=== PATIENT | female | born 1975 | race Caucasian/White ===

== ENCOUNTER 2020-09-26 16:06 | Observation (INO) ==
[2020-09-26 18:29] LABS: Bilirubin,Urine Negative (Negative); Blood,Urine Negative (Negative); Clarity,Urine Clear (Clear); Color,Urine Light-Yellow (Yellow); Glucose,Urine (UA) Normal (Normal); Ketones,Urine Negative (Negative); Leukocyte Esterase,Urine Negative (Negative); Nitrite,Urine Negative (Negative); Protein,Urine Negative (Neg-Trace); Specific Gravity,Urine 1.026 (1.010-1.025); Urobilinogen,Urine Normal (Normal)
[2020-09-26] MEDS ORDERED: Metoclopramide 10 MG/2 ML VIAL IVP ONE (18:51)
[2020-09-26] MEDS ORDERED: Morphine Sulfate 2 MG/ML SYRINGE IVP ONE ×3 (18:51→22:30)
[2020-09-26] MEDS ORDERED: Isovue-370 500 ML BOTTLE IVP ONE (19:04)
[2020-09-26] MEDS ORDERED: Isovue-370 500 ML BOTTLE PO ONE (19:27)
[2020-09-26 19:49] LABS: Basophils # 0.1 K/mcL (0.0-0.2); Basophils % 0.7 %; Eosinophils # 0.2 K/mcL (0.0-0.6); Eosinophils % 1.7 %; Hematocrit 41.2 % (35.3-44.9); Hemoglobin 12.9 g/dL (11.5-15.4); Immature Granulocytes % 0.3 % (0-4); Lymphocytes # 3.1 K/mcL (0.6-4.6); Lymphocytes % 30.9 %; Mean Corpuscular HGB Conc 31.3 g/dL (31.6-35.5); Mean Corpuscular Hemoglobin 27.5 pg (28.0-33.3); Mean Corpuscular Volume 87.8 fL (83.0-100.0); Mean Platelet Volume 9.7 fL (9.4-12.4); Monocytes # 0.7 K/mcL (0.0-1.3); Monocytes % 6.5 %; Platelet Count 308 K/mcL (140-400); Red Blood Count 4.69 M/mcL (3.82-4.97); Red Cell Distribution Width 13.2 % (11.5-14.5); Segmented Neutrophils % 59.9 %
[2020-09-26 20:07] LABS: Alanine Aminotransferase 17 Units/L (7-52); Albumin 4.1 g/dL (3.5-5.7); Albumin/Globulin Ratio 1.4 (1.1-2.2); Alkaline Phosphatase 79 Units/L (34-104); Aspartate Amino Transferase 18 Units/L (13-39); BUN/Creatinine Ratio 25 (6-26); Bilirubin,Indirect 0.2 mg/dL (0.0-1.0); Bilirubin,Total 0.2 mg/dL (0.3-1.0); Blood Urea Nitrogen 14 mg/dL (6-20); Carbon Dioxide 25 mEq/L (23-29); Chloride 106 mEq/L (98-107); Globulin 2.9 g/dL (2.4-3.5); Glucose 85 mg/dL (70-105); Lipase 20 Units/L (11-82); Osmolality,Calculated 286 (280-300); Potassium 4.2 mEq/L (3.5-5.1); Sodium 138 mEq/L (136-145); eGFR For African Americans > 60 (> 60); eGFR For Non-African Americans > 60 (> 60)
[2020-09-26] MEDS ORDERED: Naloxone 0.4 MG/ML INJ IVP PRN (23:33)
[2020-09-27] MEDS ORDERED: Naloxone 0.4 MG/ML INJ IVP PRN (00:31)
[2020-09-27] MEDS ORDERED: 0.9 % Sodium Chloride 1,000 ML IVC SCH (00:45)
[2020-09-27] MEDS ORDERED: BUPRENORPHINE HCL 75 MCG SL SCH (02:00)
[2020-09-27] MEDS ORDERED: tiZANidine 4 MG TABLET PO PRN (02:00)
[2020-09-27] MEDS: BUPRENORPHINE HCL 75 MCG SL SCH ×2 (04:36→16:53)
[2020-09-27] MEDS: *HR* Heparin 5,000 UNIT/ML VIAL SQ SCH ×2 (05:52→16:53)
[2020-09-27 06:53] LABS: Prothrombin Time 11.9 Seconds (9.4-12.1)
[2020-09-27] MEDS ORDERED: *HR* LORazepam 2 MG/ML VIAL IVP ONE (06:53)
[2020-09-27 07:08] LABS: Basophils # 0.1 K/mcL (0.0-0.2); Basophils % 0.8 %; Eosinophils # 0.2 K/mcL (0.0-0.6); Eosinophils % 2.3 %; Hematocrit 41.2 % (35.3-44.9); Hemoglobin 12.8 g/dL (11.5-15.4); Immature Granulocytes % 0.4 % (0-4); Lymphocytes # 3.2 K/mcL (0.6-4.6); Lymphocytes % 38.4 %; Mean Corpuscular HGB Conc 31.1 g/dL (31.6-35.5); Mean Corpuscular Hemoglobin 27.6 pg (28.0-33.3); Mean Corpuscular Volume 88.8 fL (83.0-100.0); Mean Platelet Volume 9.9 fL (9.4-12.4); Monocytes # 0.6 K/mcL (0.0-1.3); Monocytes % 7.6 %; Neutrophils # 4.2 K/mcL (1.6-8.9); Platelet Count 296 K/mcL (140-400); Red Blood Count 4.64 M/mcL (3.82-4.97); Red Cell Distribution Width 13.4 % (11.5-14.5); Segmented Neutrophils % 50.5 %; White Blood Count 8.3 K/mcL (4.3-11.1)
[2020-09-27 07:18] LABS: Alanine Aminotransferase 24 Units/L (7-52); Albumin 3.8 g/dL (3.5-5.7); Albumin/Globulin Ratio 1.6 (1.1-2.2); Alkaline Phosphatase 71 Units/L (34-104); Aspartate Amino Transferase 31 Units/L (13-39); BUN/Creatinine Ratio 18 (6-26); Bilirubin,Total 0.3 mg/dL (0.3-1.0); Blood Urea Nitrogen 11 mg/dL (6-20); Calcium 8.8 mg/dL (8.6-10.3); Carbon Dioxide 28 mEq/L (23-29); Chloride 105 mEq/L (98-107); Globulin 2.4 g/dL (2.4-3.5); Glucose 78 mg/dL (70-105); Osmolality,Calculated 284 (280-300); Phosphorous 4.3 mg/dL (2.7-4.5); Potassium 3.8 mEq/L (3.5-5.1); Sodium 138 mEq/L (136-145); Total Protein 6.2 g/dL (6.4-8.9); eGFR For African Americans > 60 (> 60); eGFR For Non-African Americans > 60 (> 60)
[2020-09-27] MEDS ORDERED: hydrOXYzine pamoate 25 MG CAPSULE PO SCH (09:00)
[2020-09-27] MEDS ORDERED: ARIPiprazole 10 MG TABLET PO SCH (09:00)
[2020-09-27] MEDS: Loratadine 10 MG TABLET PO SCH (09:42)
[2020-09-27] MEDS: Gabapentin 300 MG CAPSULE PO SCH ×3 (09:43→20:45)
[2020-09-27] MEDS: Nicotine 14 MG PATCH.TD24 TD SCH (12:56)
[2020-09-27] MEDS ORDERED: QUEtiapine Fumarate 100 MG TABLET PO SCH (21:00)
[2020-09-27] MEDS ORDERED: Divalproex (24 HR) 500 MG TABLET PO SCH ×2 (21:00)
[2020-09-28] MEDS: BUPRENORPHINE HCL 75 MCG SL SCH (00:48)
[2020-09-28] MEDS: *HR* Heparin 5,000 UNIT/ML VIAL SQ SCH (02:52)
[2020-09-28] MEDS: Gabapentin 300 MG CAPSULE PO SCH ×2 (07:56→14:08)
[2020-09-28] MEDS: Nicotine 14 MG PATCH.TD24 TD SCH (07:56)
[2020-09-28] MEDS: Loratadine 10 MG TABLET PO SCH (07:56)
[2020-09-28] MEDS ORDERED: ARIPiprazole 10 MG TABLET PO SCH (09:00)
[2020-09-28 12:11] VITALS: BP 119/64
[2020-09-28] MEDS ORDERED: *HR* Propofol 200 MG/20 ML VIAL IVP ONE (12:18)
[2020-09-28] MEDS ORDERED: BUPRENORPHINE HCL 150 MCG BC SCH (21:00)
== END 2020-09-28 15:21 | disposition home or self-care (01) ==
LOC: 2ANU 16:06 → EMEROOARM 16:06 → SUATTDRO 09-27 00:01 → 2ANU 09-27 00:38
PROVIDERS: ADMIT Student in an Organized Health Care Education/Training Program; ATTEND Internal Medicine
PROC: ENDOEBX (2020-09-28 13:00)

== ENCOUNTER 2021-05-22 11:47 | Inpatient (IN) ==
[2021-05-22] MEDS ORDERED: Aspirin 81 MG TAB.CHEW PO ONE (12:19)
[2021-05-22 12:50] LABS: Basophils # 0.1 K/mcL (0.0-0.2); Basophils % 0.6 %; Eosinophils % 0.4 %; Immature Granulocytes % 0.5 % (0-4); Lymphocytes # 2.3 K/mcL (0.6-4.6); Lymphocytes % 21.1 %; Mean Corpuscular HGB Conc 33.3 g/dL (31.6-35.5); Mean Corpuscular Hemoglobin 28.6 pg (28.0-33.3); Mean Corpuscular Volume 85.7 fL (83.0-100.0); Mean Platelet Volume 9.6 fL (9.4-12.4); Monocytes # 0.8 K/mcL (0.0-1.3); Neutrophils # 7.5 K/mcL (1.6-8.9); Platelet Count 387 K/mcL (140-400); Red Cell Distribution Width 13.3 % (11.5-14.5); Segmented Neutrophils % 70.4 %; White Blood Count 10.7 K/mcL (4.3-11.1)
[2021-05-22 12:52] LABS: Bilirubin,Urine Negative (Negative); Blood,Urine Negative (Negative); Clarity,Urine Clear (Clear); Color,Urine Yellow (Yellow); Glucose,Urine (UA) Normal (Normal); Ketones,Urine 60 mg/dL (Negative); Leukocyte Esterase,Urine Negative (Negative); Nitrite,Urine Negative (Negative); Protein,Urine Trace mg/dL (Neg-Trace); Specific Gravity,Urine 1.024 (1.010-1.025)
[2021-05-22 12:57] LABS: INR 1.1; Prothrombin Time 12.2 Seconds (9.4-12.1)
[2021-05-22 13:00] LABS: Activated Partial Thrombo Time 28.7 Seconds (26.0-36.0)
[2021-05-22 13:13] LABS: Acetaminophen < 10 mcg/mL (10-20); Blood Urea Nitrogen 11 mg/dL (6-20); Calcium 9.3 mg/dL (8.6-10.3); Carbon Dioxide 25 mEq/L (23-29); Chloride 106 mEq/L (98-107); Chol/HDL Ratio 3.6 (0-4.9); Cholesterol 186 mg/dL (< 200); Ethanol < 10 mg/dL (Less than 10); Glucose 92 mg/dL (70-105); HDL Cholesterol 52 mg/dL (40-59); LDL Cholesterol,Calculated 114 mg/dL (< 100); Osmolality,Calculated 289 (280-300); Potassium 3.4 mEq/L (3.5-5.1); Salicylate < 2.5 mg/dL (15.0-30.0); Sodium 140 mEq/L (136-145); Triglycerides 100 mg/dL (< 150); Troponin I < 0.03 ng/mL (< 0.04)
[2021-05-22 13:19] LABS: BUN/Creatinine Ratio 19 (6-26); eGFR For African Americans > 60 (> 60); eGFR For Non-African Americans > 60 (> 60)
[2021-05-22 13:19] LABS: Amphetamine Screen,Urine Negative ng/mL (Cutoff=1000); Barbiturate Screen,Urine Negative ng/mL (Cutoff=200); Benzodiazepines Screen,Urine Negative ng/mL (Cutoff=200); Cannabinoid Screen,Urine Negative ng/mL (Cutoff = 50); Cocaine Screen,Urine Negative ng/mL (Cutoff= 300); Opiate Screen,Urine Positive ng/mL (Cutoff=300); Phencyclidine Screen,Urine Negative ng/mL (Cutoff=25)
[2021-05-22 13:23] LABS: Estimated Average Glucose 117 mg/dl; Hemoglobin A1C 5.7 %
[2021-05-22] MEDS ORDERED: *HR* LORazepam 1 MG TABLET PO PRN (16:01)
[2021-05-22] MEDS ORDERED: haloperidoL 5 MG TABLET PO PRN (16:01)
[2021-05-22] MEDS ORDERED: Mag Hydrox/Al Hydrox/Simeth 30 ML UDC PO PRN (16:01)
[2021-05-22] MEDS ORDERED: MOM Conc 10 ML UD.LIQ PO PRN (16:01)
[2021-05-22 16:42] LABS: Influenza A PCR Negative (Negative); Influenza B PCR Negative (Negative); Resp. Syncytial Virus PCR Negative (Negative)
[2021-05-22 17:52] LABS: SARS-CoV-2 by PCR (In House) Negative (Negative)
[2021-05-22] MEDS: Morphine Sulfate ER (12 HR) 15 MG TABLET.ER PO SCH (19:44)
[2021-05-22] MEDS: hydrOXYzine pamoate 25 MG CAPSULE PO PRN (19:46)
[2021-05-22] MEDS: tiZANidine 4 MG TABLET PO PRN (20:25)
[2021-05-22] MEDS: Gabapentin 300 MG CAPSULE PO SCH (20:25)
[2021-05-22] MEDS: Divalproex (24 HR) 500 MG TABLET PO SCH (20:26)
[2021-05-22] MEDS: traZODone 50 MG TABLET PO PRN (20:28)
[2021-05-22] MEDS ORDERED: Nicotine 2 MG GUM BC PRN (21:43)
[2021-05-23] MEDS: Cholecalciferol (D-3) 1,000 UNIT (25MCG) TABLET PO SCH (08:06)
[2021-05-23] MEDS: Morphine Sulfate ER (12 HR) 15 MG TABLET.ER PO SCH ×3 (08:06→20:48)
[2021-05-23] MEDS: Gabapentin 300 MG CAPSULE PO SCH ×3 (08:07→20:48)
[2021-05-23] MEDS: Ascorbic Acid 500 MG TABLET PO SCH (08:07)
[2021-05-23] MEDS: Nicotine 21 MG PATCH.TD24 TD SCH (08:11)
[2021-05-23] MEDS: hydrOXYzine pamoate 25 MG CAPSULE PO PRN ×3 (10:26→22:18)
[2021-05-23] MEDS: Divalproex (24 HR) 500 MG TABLET PO SCH (20:47)
[2021-05-23] MEDS: traZODone 50 MG TABLET PO PRN (20:55)
[2021-05-23] MEDS: tiZANidine 4 MG TABLET PO PRN (20:55)
[2021-05-23] MEDS: Acetaminophen 325 MG TABLET PO PRN (22:18)
[2021-05-24] MEDS: Nicotine 21 MG PATCH.TD24 TD SCH (08:45)
[2021-05-24] MEDS: Cholecalciferol (D-3) 1,000 UNIT (25MCG) TABLET PO SCH (08:45)
[2021-05-24] MEDS: Ascorbic Acid 500 MG TABLET PO SCH (08:46)
[2021-05-24] MEDS: Morphine Sulfate ER (12 HR) 15 MG TABLET.ER PO SCH ×2 (08:46→20:13)
[2021-05-24] MEDS: Gabapentin 300 MG CAPSULE PO SCH ×3 (08:47→20:13)
[2021-05-24] MEDS: hydrOXYzine pamoate 25 MG CAPSULE PO PRN ×3 (08:48→17:34)
[2021-05-24] MEDS: risperiDONE 0.25 MG TABLET PO SCH ×2 (11:49→20:14)
[2021-05-24] MEDS ORDERED: Fluconazole 100 MG TABLET PO ONE (13:00)
[2021-05-24] MEDS: Acetaminophen 325 MG TABLET PO PRN (17:41)
[2021-05-24] MEDS: Divalproex (24 HR) 500 MG TABLET PO SCH (20:13)
[2021-05-24] MEDS: traZODone 50 MG TABLET PO PRN (21:02)
[2021-05-24] MEDS: tiZANidine 4 MG TABLET PO PRN (23:25)
[2021-05-25] MEDS: hydrOXYzine pamoate 25 MG CAPSULE PO PRN ×3 (08:26→21:03)
[2021-05-25] MEDS: tiZANidine 4 MG TABLET PO PRN ×2 (08:26→20:12)
[2021-05-25] MEDS: risperiDONE 0.25 MG TABLET PO SCH ×2 (08:27→20:12)
[2021-05-25] MEDS: Cholecalciferol (D-3) 1,000 UNIT (25MCG) TABLET PO SCH (08:27)
[2021-05-25] MEDS: Morphine Sulfate ER (12 HR) 15 MG TABLET.ER PO SCH ×2 (08:28→20:12)
[2021-05-25] MEDS: Ascorbic Acid 500 MG TABLET PO SCH (08:28)
[2021-05-25] MEDS: Nicotine 21 MG PATCH.TD24 TD SCH (08:29)
[2021-05-25] MEDS: Gabapentin 300 MG CAPSULE PO SCH ×3 (08:29→20:12)
[2021-05-25] MEDS: Acetaminophen 325 MG TABLET PO PRN (13:16)
[2021-05-25] MEDS ORDERED: ALPRAZolam 0.5 MG TABLET PO ONE (13:22)
[2021-05-25] MEDS: Divalproex (24 HR) 500 MG TABLET PO SCH (20:12)
[2021-05-25] MEDS: traZODone 50 MG TABLET PO PRN (21:03)
[2021-05-26] MEDS: Nicotine 21 MG PATCH.TD24 TD SCH (08:36)
[2021-05-26] MEDS: Gabapentin 300 MG CAPSULE PO SCH (08:37)
[2021-05-26] MEDS: risperiDONE 0.25 MG TABLET PO SCH (08:38)
[2021-05-26] MEDS: Cholecalciferol (D-3) 1,000 UNIT (25MCG) TABLET PO SCH (08:38)
[2021-05-26] MEDS: Ascorbic Acid 500 MG TABLET PO SCH (08:38)
[2021-05-26] MEDS: Morphine Sulfate ER (12 HR) 15 MG TABLET.ER PO SCH (08:39)
[2021-05-26] MEDS: hydrOXYzine pamoate 25 MG CAPSULE PO PRN (08:39)
[2021-05-26] MEDS: tiZANidine 4 MG TABLET PO PRN (08:39)
[2021-05-26 09:49] VITALS: BP 118/63; PULSE 66; TEMP 97.7; O2SAT 98
== END 2021-05-26 13:00 | disposition home or self-care (01) | DRG 753 ==
LOC: EMEROOARM 11:47 → 1ANU 17:56 → INTOOBSV 17:56 → 1ANU 18:44
PROVIDERS: ADMIT Psychiatry & Neurology Psychiatry; ATTEND Psychiatry & Neurology Psychiatry

== ENCOUNTER 2022-01-18 14:29 | Inpatient (IN) ==
[2022-01-18 17:11] LABS: Bilirubin,Urine Negative (Negative); Blood,Urine Negative (Negative); Clarity,Urine Clear (Clear); Color,Urine Yellow (Yellow); Glucose,Urine (UA) Normal (Normal); Ketones,Urine 40 mg/dL (Negative); Leukocyte Esterase,Urine Negative (Negative); Mucus,Urine Few per lpf (None-Few); Nitrite,Urine Negative (Negative); Protein,Urine 50 mg/dL (Neg-Trace); Specific Gravity,Urine > 1.030 (1.010-1.025); Squamous Epithelial Cell,Urine Moderate per hpf (None-Few); WBC,Urine 0-3 per hpf (0-3)
[2022-01-18 19:32] LABS: Basophils # 0.1 K/mcL (0.0-0.2); Basophils % 0.8 %; Eosinophils # 0.1 K/mcL (0.0-0.6); Eosinophils % 0.8 %; Hematocrit 46.3 % (35.3-44.9); Hemoglobin 15.2 g/dL (11.5-15.4); Immature Granulocytes % 0.3 % (0-4); Lymphocytes % 36.5 %; Mean Corpuscular HGB Conc 32.8 g/dL (31.6-35.5); Mean Corpuscular Hemoglobin 27.9 pg (28.0-33.3); Mean Platelet Volume 9.5 fL (9.4-12.4); Monocytes # 0.5 K/mcL (0.0-1.3); Monocytes % 6.6 %; Neutrophils # 4.3 K/mcL (1.6-8.9); Platelet Count 269 K/mcL (140-400); Red Blood Count 5.45 M/mcL (3.82-4.97); Red Cell Distribution Width 13.4 % (11.5-14.5)
[2022-01-18 19:33] LABS: Lymphocytes # 2.9 K/mcL (0.6-4.6); White Blood Count 7.8 K/mcL (4.3-11.1)
[2022-01-18 19:50] LABS: BUN/Creatinine Ratio 12 (6-26); Blood Urea Nitrogen 9 mg/dL (6-20); Calcium 9.6 mg/dL (8.6-10.3); Carbon Dioxide 27 mEq/L (23-29); Chloride 101 mEq/L (98-107); Glucose 90 mg/dL (70-105); Osmolality,Calculated 284 (280-300); Potassium 3.8 mEq/L (3.5-5.1); Sodium 138 mEq/L (136-145); eGFR For African Americans > 60 (> 60); eGFR For Non-African Americans > 60 (> 60)
[2022-01-18] MEDS ORDERED: *HR* HYDROmorphone 2 MG/ML SYRINGE IVP ONE (20:06)
[2022-01-18] MEDS ORDERED: Famotidine 20 MG/2 ML VIAL IVP ONE (20:08)
[2022-01-18] MEDS ORDERED: Ringers Solution, Lactated 1,000 ML IVC ONE (20:09)
[2022-01-18 20:15] LABS: Alanine Aminotransferase 14 Units/L (7-52); Albumin 4.4 g/dL (3.5-5.7); Albumin/Globulin Ratio 1.2 (1.1-2.2); Alkaline Phosphatase 78 Units/L (34-104); Aspartate Amino Transferase 20 Units/L (13-39); Bilirubin,Indirect 0.4 mg/dL (0.0-1.0); Bilirubin,Total 0.4 mg/dL (0.3-1.0); Globulin 3.7 g/dL (2.4-3.5); Total Protein 8.1 g/dL (6.4-8.9)
[2022-01-18 21:13] LABS: Lipase 32 Units/L (11-82)
[2022-01-18] MEDS ORDERED: Melatonin 3 MG TABLET PO PRN (21:42)
[2022-01-18] MEDS ORDERED: Naloxone 0.4 MG/ML INJ IVP PRN (21:42)
[2022-01-18] MEDS ORDERED: Acetaminophen 325 MG TABLET PO PRN (21:42)
[2022-01-18] MEDS ORDERED: traZODone 50 MG TABLET PO PRN (21:47)
[2022-01-18] MEDS ORDERED: hydrOXYzine pamoate 25 MG CAPSULE PO PRN (21:47)
[2022-01-18 22:53] LABS: Influenza A PCR Negative (Negative); Influenza B PCR Negative (Negative); Resp. Syncytial Virus PCR Negative (Negative)
[2022-01-18 22:55] LABS: SARS-CoV-2 by PCR (In House) Negative (Negative)
[2022-01-18] MEDS: Nicotine 21 MG PATCH.TD24 TD SCH (23:44)
[2022-01-18] MEDS: Morphine Sulfate ER (12 HR) 15 MG TABLET.ER PO SCH (23:45)
[2022-01-19] MEDS: Morphine Sulfate ER (12 HR) 15 MG TABLET.ER PO SCH (00:09)
[2022-01-19] MEDS: Morphine Sulfate Oral CONC 10 MG/0.5 ML ORAL.SYG SL PRN ×5 (00:16→21:10)
[2022-01-19] MEDS: *HR* Promethazine 25 MG/ML VIAL IM PRN ×3 (00:17→15:47)
[2022-01-19] MEDS: risperiDONE 0.25 MG TABLET PO SCH ×3 (00:26→21:10)
[2022-01-19] MEDS ORDERED: Dextrose 4 GM Chewable Tablets PO PRN ×2 (05:12)
[2022-01-19] MEDS ORDERED: D5% in Water 1,000 ML IVC PRN (05:12)
[2022-01-19] MEDS ORDERED: *HR* Dextrose 50 % in Water (Syg) 50 ML SYRINGE IVP PRN (05:12)
[2022-01-19 06:12] LABS: INR 1.1; Prothrombin Time 12.8 Seconds (9.4-12.1)
[2022-01-19 06:15] LABS: Activated Partial Thrombo Time 34.3 Seconds (26.0-36.0)
[2022-01-19 06:34] LABS: BUN/Creatinine Ratio 17 (6-26); Blood Urea Nitrogen 10 mg/dL (6-20); Calcium 8.9 mg/dL (8.6-10.3); Carbon Dioxide 26 mEq/L (23-29); Chloride 103 mEq/L (98-107); Glucose 71 mg/dL (70-105); Osmolality,Calculated 286 (280-300); Phosphorous 3.6 mg/dL (2.7-4.5); Potassium 3.6 mEq/L (3.5-5.1); Sodium 139 mEq/L (136-145); eGFR For African Americans > 60 (> 60); eGFR For Non-African Americans > 60 (> 60)
[2022-01-19 06:43] LABS: Basophils # 0.1 K/mcL (0.0-0.2); Basophils % 0.8 %; Eosinophils # 0.1 K/mcL (0.0-0.6); Eosinophils % 1.5 %; Hematocrit 39.7 % (35.3-44.9); Hemoglobin 13.3 g/dL (11.5-15.4); Immature Granulocytes % 0.1 % (0-4); Lymphocytes # 3.7 K/mcL (0.6-4.6); Lymphocytes % 51.2 %; Mean Corpuscular HGB Conc 33.5 g/dL (31.6-35.5); Mean Corpuscular Hemoglobin 28.3 pg (28.0-33.3); Mean Corpuscular Volume 84.5 fL (83.0-100.0); Mean Platelet Volume 9.5 fL (9.4-12.4); Monocytes # 0.6 K/mcL (0.0-1.3); Monocytes % 8.5 %; Neutrophils # 2.8 K/mcL (1.6-8.9); Platelet Count 246 K/mcL (140-400); Red Cell Distribution Width 13.3 % (11.5-14.5); Segmented Neutrophils % 37.9 %; White Blood Count 7.3 K/mcL (4.3-11.1)
[2022-01-19] MEDS: Nicotine 21 MG PATCH.TD24 TD SCH (08:16)
[2022-01-19] MEDS ORDERED: Lidocaine -MPF 2% 5 ML VIAL ONE (11:02)
[2022-01-19] MEDS ORDERED: *HR* Succinylcholine 200 MG/10 ML VIAL IVP ONE (11:02)
[2022-01-19] MEDS ORDERED: Ketorolac 30 MG/ML VIAL IVP ONE (14:12)
[2022-01-19] MEDS ORDERED: Ringers Solution, Lactated 1,000 ML IVC SCH (14:15)
[2022-01-19] MEDS: Divalproex (24 HR) 500 MG TABLET PO SCH (21:01)
[2022-01-19] MEDS: 0.9 % Sodium Chloride 1,000 ML IVC SCH (21:03)
[2022-01-19] MEDS ORDERED: Prochlorperazine 10 MG/2 ML VIAL IVP PRN (21:31)
[2022-01-20] MEDS: *HR* Promethazine 25 MG/ML VIAL IM PRN (00:21)
[2022-01-20] MEDS: Morphine Sulfate Oral CONC 10 MG/0.5 ML ORAL.SYG SL PRN ×2 (00:31→06:06)
[2022-01-20] MEDS ORDERED: Prochlorperazine 10 MG/2 ML VIAL IVP ONE (05:43)
[2022-01-20 07:15] LABS: BUN/Creatinine Ratio 25 (6-26); Blood Urea Nitrogen 17 mg/dL (6-20); Calcium 8.9 mg/dL (8.6-10.3); Carbon Dioxide 25 mEq/L (23-29); Chloride 103 mEq/L (98-107); Glucose 56 mg/dL (70-105); Osmolality,Calculated 283 (280-300); Potassium 3.7 mEq/L (3.5-5.1); Sodium 137 mEq/L (136-145); eGFR For African Americans > 60 (> 60); eGFR For Non-African Americans > 60 (> 60)
[2022-01-20] MEDS ORDERED: Acetaminophen IV 1,000 MG/100 ML BAG IVPB ONE (09:22)
[2022-01-20] MEDS: risperiDONE 0.25 MG TABLET PO SCH ×2 (10:02→20:57)
[2022-01-20] MEDS: Sennosides/Docusate Sodium TABLET PO SCH (10:03)
[2022-01-20] MEDS: Prochlorperazine 10 MG/2 ML VIAL IVP PRN ×3 (10:03→22:05)
[2022-01-20] MEDS: Nicotine 21 MG PATCH.TD24 TD SCH (11:10)
[2022-01-20] MEDS ORDERED: E-Z-HD (BARIUM SULF) SUSPENSION PO ONE (16:48)
[2022-01-20] MEDS: 0.9 % Sodium Chloride 1,000 ML IVC SCH ×3 (16:59→22:11)
[2022-01-20] MEDS: Famotidine 20 MG TABLET PO SCH (20:11)
[2022-01-20] MEDS: traZODone 50 MG TABLET PO SCH (20:58)
[2022-01-20] MEDS: Gabapentin 300 MG CAPSULE PO SCH (21:00)
[2022-01-20] MEDS: tiZANidine 4 MG TABLET PO SCH (21:00)
[2022-01-20] MEDS: Divalproex (24 HR) 500 MG TABLET PO SCH (21:00)
[2022-01-21] MEDS: Prochlorperazine 10 MG/2 ML VIAL IVP PRN ×3 (04:26→17:45)
[2022-01-21] MEDS: 0.9 % Sodium Chloride 1,000 ML IVC SCH (06:12)
[2022-01-21] MEDS: Gabapentin 300 MG CAPSULE PO SCH ×3 (10:50→20:16)
[2022-01-21] MEDS: D5% in 0.9% NACL 1,000 ML IVC SCH ×2 (10:50→20:12)
[2022-01-21] MEDS: Pantoprazole 40 MG VIAL IVP SCH (10:50)
[2022-01-21] MEDS: Nicotine 21 MG PATCH.TD24 TD SCH (10:51)
[2022-01-21] MEDS: Cholecalciferol (D-3) 1,000 UNIT (25MCG) TABLET PO SCH (10:51)
[2022-01-21] MEDS: tiZANidine 4 MG TABLET PO SCH ×2 (10:51→20:26)
[2022-01-21] MEDS: Sennosides/Docusate Sodium TABLET PO SCH (10:51)
[2022-01-21] MEDS: risperiDONE 0.25 MG TABLET PO SCH ×2 (10:51→20:14)
[2022-01-21] MEDS: Morphine Sulfate Oral CONC 10 MG/0.5 ML ORAL.SYG SL PRN ×2 (12:53→20:26)
[2022-01-21] MEDS: traZODone 50 MG TABLET PO SCH (20:14)
[2022-01-21] MEDS: Famotidine 20 MG TABLET PO SCH (20:14)
[2022-01-21] MEDS: Divalproex (24 HR) 500 MG TABLET PO SCH (20:16)
[2022-01-22] MEDS: Prochlorperazine 10 MG/2 ML VIAL IVP PRN ×3 (01:53→19:55)
[2022-01-22] MEDS: D5% in 0.9% NACL 1,000 ML IVC SCH ×3 (04:42→05:21)
[2022-01-22] MEDS: Morphine Sulfate Oral CONC 10 MG/0.5 ML ORAL.SYG SL PRN ×3 (04:56→20:23)
[2022-01-22] MEDS: Cholecalciferol (D-3) 1,000 UNIT (25MCG) TABLET PO SCH (08:21)
[2022-01-22] MEDS: Gabapentin 300 MG CAPSULE PO SCH ×3 (08:21→20:22)
[2022-01-22] MEDS: Sennosides/Docusate Sodium TABLET PO SCH (08:22)
[2022-01-22] MEDS: tiZANidine 4 MG TABLET PO SCH ×2 (08:22→20:22)
[2022-01-22] MEDS: risperiDONE 0.25 MG TABLET PO SCH ×2 (08:22→20:23)
[2022-01-22] MEDS: Nicotine 21 MG PATCH.TD24 TD SCH (08:22)
[2022-01-22] MEDS: Pantoprazole 40 MG VIAL IVP SCH (08:24)
[2022-01-22] MEDS ORDERED: GI Cocktail 40 ML EACH PO ONE (17:49)
[2022-01-22] MEDS ORDERED: Ondansetron 4 MG/2 ML VIAL IVP PRN (18:21)
[2022-01-22] MEDS: Famotidine 20 MG TABLET PO SCH (20:20)
[2022-01-22] MEDS: Divalproex (24 HR) 500 MG TABLET PO SCH (20:21)
[2022-01-22] MEDS: traZODone 50 MG TABLET PO SCH (20:23)
[2022-01-23 02:08] LABS: Alanine Aminotransferase 18 Units/L (7-52); Albumin/Globulin Ratio 1.3 (1.1-2.2); Alkaline Phosphatase 58 Units/L (34-104); Aspartate Amino Transferase 25 Units/L (13-39); BUN/Creatinine Ratio 4 (6-26); Bilirubin,Total 0.3 mg/dL (0.3-1.0); Blood Urea Nitrogen 2 mg/dL (6-20); Calcium 8.3 mg/dL (8.6-10.3); Carbon Dioxide 22 mEq/L (23-29); Chloride 109 mEq/L (98-107); Globulin 2.4 g/dL (2.4-3.5); Glucose 109 mg/dL (70-105); Lipase 28 Units/L (11-82); Osmolality,Calculated 283 (280-300); Potassium 3.5 mEq/L (3.5-5.1); Sodium 138 mEq/L (136-145); Total Protein 5.4 g/dL (6.4-8.9); eGFR For African Americans > 60 (> 60); eGFR For Non-African Americans > 60 (> 60)
[2022-01-23] MEDS: Morphine Sulfate Oral CONC 10 MG/0.5 ML ORAL.SYG SL PRN ×2 (03:31→12:14)
[2022-01-23] MEDS: Gabapentin 300 MG CAPSULE PO SCH (07:26)
[2022-01-23] MEDS: Sennosides/Docusate Sodium TABLET PO SCH (07:27)
[2022-01-23] MEDS: tiZANidine 4 MG TABLET PO SCH (07:27)
[2022-01-23] MEDS: Pantoprazole 40 MG VIAL IVP SCH (07:27)
[2022-01-23] MEDS: risperiDONE 0.25 MG TABLET PO SCH (07:27)
[2022-01-23] MEDS: Nicotine 21 MG PATCH.TD24 TD SCH (07:28)
[2022-01-23] MEDS: Cholecalciferol (D-3) 1,000 UNIT (25MCG) TABLET PO SCH (07:35)
[2022-01-23 10:22] VITALS: BP 124/74; PULSE 55; TEMP 97.9; O2SAT 94
== END 2022-01-23 14:55 | disposition home or self-care (01) | DRG 392 ==
LOC: 3ANU 14:29 → EMEROOARM 14:29 → SUATTDRO 22:05 → 3ANU 22:31
PROVIDERS: ADMIT Internal Medicine; ATTEND Internal Medicine